=== PATIENT | female | born 1965 | race African-American/Black ===

== ENCOUNTER 2017-04-27 13:34 | Emergency (ER) | payer OTHER ==
[2017-04-27 14:18] VITALS: BP 136/87; PULSE 87; TEMP 97.7; BMI 22.3
[2017-04-27] MEDS ORDERED: IBUPROFEN 600 MG TABLET (FP) PO ONE (16:25)
[2017-04-27] MEDS ORDERED: IBUPROFEN 400 MG TABLET (FP) PO ONE (16:29)
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
== END 2017-04-27 16:47 | disposition home or self-care (01) ==
LOC: JERFT 13:34
DX: M54.5 Low back pain (principal); M25.511 Pain in right shoulder; V49.49XA Driver injured in collision with other motor vehicles in traffic accident, initial encounter; Y92.488 Other paved roadways as the place of occurrence of the external cause; Y93.89 Activity, other specified; Y99.8 Other external cause status
CPT/HCPCS: 99281-25